=== PATIENT | female | born 1985 | race Two or more races ===

== ENCOUNTER 2018-05-21 14:40 | Emergency (ER) | payer OTHER ==
[~2018-05-21] VITALS: Ht 167.6 cm; Wt 95.3 kg
[2018-05-21 15:41] VITALS: BP 144/80
[2018-05-21 15:41] LABS: EOSINOPHILS % (AUTO) 0.8 % (0.0-3.0); HEMATOCRIT 45.2 % (37.0-47.0); HEMOGLOBIN 14.7 G/DL (12.0-16.0); LYMPHOCYTES % (AUTO) 23.4 % (20.0-45.0); MEAN CORPUSCULAR VOLUME 81 FL (80-99); MONOCYTES % (AUTO) 6.2 % (1.0-10.0); NEUTROPHILS % (AUTO) 68.7 % (45.0-75.0); PLATELET COUNT 211 K/UL (150-450); RED BLOOD COUNT 5.57 M/UL (4.20-5.40); RED CELL DISTRIBUTION WIDTH 11.4 % (11.6-14.8)
[2018-05-21 15:56] LABS: ANION GAP 8 mmol/L (5-15); BLOOD UREA NITROGEN 9 mg/dL (7-18); CALCIUM 9.5 MG/DL (8.5-10.1); CARBON DIOXIDE 26 MMOL/L (21-32); CHLORIDE 105 MMOL/L (98-107); POTASSIUM 3.7 MMOL/L (3.5-5.1); SODIUM 139 MMOL/L (136-145)
--- NOTE | 2018-05-21 16:34 | Emergency Room Report ---
History of Present Illness General Chief Complaint: Dizziness Source: Patient Present Illness HPI Mrs. Lemus is a healthy 32 yo female who presents with dizziness, nausea and diarrhea sudden onset after eating a veal taco. She has been in good health. She has been stressed at work. Short-staffed at [employer]. She is a [employer]. Has hx of anemia. otherwise healthy. No chest pain. No abd pain. NO dyspnea. NO palpitations. Patient History Last Menstrual Period: apr 26, 2018 Now: No Nursing Documentation-[facility] Past Medical History: No Stated History Review of Systems Constitutional: Reports: malaise; Denies: fever Gastrointestinal: Denies: abdominal pain Genitourinary: Denies: discharge All Other Systems: negative except mentioned in HPI Physical Exam Vital Signs Date Time Temp Pulse Resp B/P (MAP) Pulse Ox O2 Delivery O2 Flow Rate FiO2 05/21/18 15:41 87 12 144/80 98 Room Air Sp02 EP Interpretation: reviewed, normal General Appearance: no apparent distress, alert, GCS 15, non-toxic Head: normocephalic, atraumatic Eyes: bilateral eye normal inspection ENT: hearing grossly normal, normal pharynx, no angioedema, normal voice Neck: full range of motion, supple/symm/no masses Respiratory: chest non-tender, lungs clear, normal breath sounds, speaking full sentences Cardiovascular #1: regular rate, rhythm, no edema, no gallop, no JVD, no murmur , no rub Gastrointestinal: normal bowel sounds, non tender, soft, non-distended, no guarding, no rebound Musculoskeletal: back normal, gait/station normal, normal range of motion, non- tender Neurologic: alert, oriented x3, responsive, motor strength/tone normal, sensory intact, speech normal Psychiatric: judgement/insight normal, memory normal, mood/affect normal, no suicidal/homicidal ideation Skin: normal color, no rash, warm/dry, well hydrated Lymphatic: no adenopathy Medical Decision Making Diagnostic Impression: Primary Impression: Dizziness Additional Impression: Food poisoning ER Course Dizziness, nausea diarrhea after eating, suspect fatigue and food poisoning. No indication of anemia, PE or bacteremia. Given reassurance and return precautions. Labs Test 05/21/18 15:30 White Blood Count 6.0 K/UL (4.8-10.8) Red Blood Count 5.57 M/UL (4.20-5.40) Hemoglobin 14.7 G/DL (12.0-16.0) Hematocrit 45.2 % (37.0-47.0) Mean Corpuscular Volume 81 FL (80-99) Mean Corpuscular Hemoglobin 26.4 PG (27.0-31.0) Mean Corpuscular Hemoglobin Concent 32.5 G/DL (32.0-36.0) Red Cell Distribution Width 11.4 % (11.6-14.8) Platelet Count 211 K/UL (150-450) Mean Platelet Volume 9.2 FL (6.5-10.1) Neutrophils (%) (Auto) 68.7 % (45.0-75.0) Lymphocytes (%) (Auto) 23.4 % (20.0-45.0) Monocytes (%) (Auto) 6.2 % (1.0-10.0) Eosinophils (%) (Auto) 0.8 % (0.0-3.0) Basophils (%) (Auto) 1.0 % (0.0-2.0) Sodium Level 139 MMOL/L (136-145) Potassium Level 3.7 MMOL/L (3.5-5.1) Chloride Level 105 MMOL/L (98-107) Carbon Dioxide Level 26 MMOL/L (21-32) Anion Gap 8 mmol/L (5-15) Blood Urea Nitrogen 9 mg/dL (7-18) Creatinine 1.0 MG/DL (0.55-1.30) Estimat Glomerular Filtration Rate > 60 mL/min (>60) Glucose Level 95 MG/DL (74-106) Calcium Level 9.5 MG/DL (8.5-10.1) Human Chorionic Gonadotropin, Qual Negative (NEGATIVE) Last Vital Signs Date Time Temp Pulse Resp B/P (MAP) Pulse Ox O2 Delivery O2 Flow Rate FiO2 05/21/18 15:41 87 12 144/80 98 Room Air Referrals: JOCELIN OSBORNE,REFERRING (PCP) Magali Victor MD May 21, 2018 16:34
[2018-05-21 16:51] VITALS: BP 144/96
[2018-05-21 16:52] VITALS: BP 144/80
== END 2018-05-21 16:53 | disposition home or self-care (01) ==
LOC: EDBD 14:40 → EMR 14:55
DX: R42 Dizziness and giddiness (principal); T62.91XA Toxic effect of unspecified noxious substance eaten as food, accidental (unintentional), initial encounter; R11.0 Nausea; R19.7 Diarrhea, unspecified; Y92.89 Other specified places as the place of occurrence of the external cause
CPT/HCPCS: 36415; 80048; 84703; 85025; 99284